=== PATIENT | male | born 1960 ===

== ENCOUNTER 2022-08-16 13:29 | Inpatient (IN) | payer SELFPAY ==
[~2022-08-16] VITALS: Ht 185.4 cm; Wt 78.1 kg
[2022-08-16] VITALS (320 sets, daily range): BP systolic 66–129; BP diastolic 48–102; PULSE 158; TEMP 96.6; O2SAT 71–100
[2022-08-16 13:40] LABS: HEMATOCRIT 51.1 % (42.0-52.0); HEMOGLOBIN 16.4 g/dl (13.5-18.0); MEAN CELL VOLUME 89 fl (80.0-100.0); MEAN CORPUSCULAR HEMOGLOBIN 29 pg (27-31); MEAN CORPUSCULAR HGB CONC 32 g/dl (33.0-37.0); MEAN PLATELET VOLUME 10.6 fl (7.4-10.4); PLATELET COUNT 218 K/mm3 (130-400); RED BLOOD COUNT 5.76 M/mm3 (4.20-5.60); REDCELL DISTRIBUTION WIDTH-CV 15.1 % (11.5-14.5)
[2022-08-16 14:09] LABS: BAND 12 % (0-10); LYMPHOCYTE 2 % (20.0-51.0); NEUTROPHILS 85 % (42.0-75.2)
[2022-08-16 14:10] LABS: ANISOCYTOSIS 1+; BURR CELLS 1+; PLATELET ESTIMATE NORMAL (NORMAL)
[2022-08-16 15:06] LABS: ALBUMIN 2.9 gm/dL (3.4-4.8); BILIRUBIN,TOTAL 1.9 mg/dL (0.2-1.2); C-REACTIVE PROTEIN 3.06 mg/dL (0.00-0.50); CALCIUM 7.7 mg/dL (8.4-10.2); CREATININE, serum 1.58 mg/dL (0.72-1.25); MAGNESIUM 2.1 mg/dL (1.6-2.6); POTASSIUM 4.9 mmol/L (3.5-4.5)
--- NOTE | 2022-08-16 17:50 | NUR ---
PT ADMITTED FROM ED AT THIS TIME. VENTILATED AND SEDATED. BILATERAL SOFT WRIST RESTRAINTS IN PLACE. MINIMAL PAIN RESPONSE FROM PT. HEART RATE AND RHYTHM UNSTABLE; AFIB WITH A RATE IN THE 160. BP 90'S/80'S. DR. ORTEGA AT THE BEDSIDE DURING ADMISSION. DECKER CATHETER DRAINING WITH CHANTELL BLOOD PRESENT. PETECHIAE PRESENT THROUGHOUT BODY BUT VERY OBVIOUS TO FOREHEAD. UNABLE TO OBTAIN INFORMATION FROM PT DUE TO BEING INTUBATED AND SEDATED. ED STAFF WAS UNABLE TO OBTAIN INFORMATION FROM PT WELL. DR. LEE ON HIS WAY TO PERFORM BETHANY AND EVALUATE FOR CARDIOVERSION.
--- NOTE | 2022-08-16 18:25 | NUR ---
PT UNABLE TO CONSENT TO PROCEDURE DUE TO BEING INTUBATED AND SEDATED. NO KNOWN FAMILY TO CONTACT FOR CONSENT.
[2022-08-16 18:31] LABS: ARTERIAL BLD GAS TCO2 CT 12.2; ARTERIAL BLOOD GAS BASE EXCESS -14.8 (-2-2); ARTERIAL BLOOD GAS HCO3 11.4 meq/L (22-26); ARTERIAL BLOOD GAS PCO2 28.6 mmHg (35-45); ARTERIAL BLOOD GAS PO2 64.4 mmHg (80-100); ARTERIAL BLOOD GAS pH 7.22 (7.35-7.45)
[2022-08-16 19:30] LABS: PROTHROMBIN TIME 23.2 SECONDS (9.7-12.8)
[2022-08-16 19:45] LABS: CALCIUM 7.4 mg/dL (8.4-10.2); CREATININE, serum 1.54 mg/dL (0.72-1.25)
[2022-08-17] VITALS (936 sets, daily range): BP systolic 79–146; BP diastolic 55–100; PULSE 77–158; TEMP 98.1–99.6; O2SAT 87–100
[2022-08-17 00:53] LABS: ARTERIAL BLD GAS O2 SATURATION 99.1 % (92-100); ARTERIAL BLD GAS TCO2 CT 17.3; ARTERIAL BLOOD GAS BASE EXCESS -8.5 (-2-2); ARTERIAL BLOOD GAS HCO3 16.3 meq/L (22-26); ARTERIAL BLOOD GAS PCO2 32.3 mmHg (35-45); ARTERIAL BLOOD GAS pH 7.32 (7.35-7.45)
[2022-08-17 00:54] LABS: ARTERIAL BLOOD GAS PO2 162.2 mmHg (80-100)
[2022-08-17 01:56] LABS: HEMATOCRIT 43.6 % (42.0-52.0)
[2022-08-17 01:59] LABS: HEMOGLOBIN 14.2 g/dl (13.5-18.0)
--- NOTE | 2022-08-17 02:00 | NUR ---
Patient care, medication administration and nursing documentation occurred during a Daylight Savings Time Change.
--- NOTE | 2022-08-17 04:43 | NUR ---
62 yo male admitted for further care and management of acute respiratory failure and severe sepsis likely secondary to a pulmonary source. ht 185.42 cm wt 105.3 kg SCr 1.54 with estimated CrCl >60 ml/min half life 18.3 hours Plan: Patient received an initial loading dose of vancomycin 2000 mg x1 in the ED (19 mg/kg); will follow with a maintenance regimen of vancomycin 1500 mg q18h to target a goal trough of 15-20 mcg/ml. Will follow patient's renal function, micro data, and vancomycin levels as indicated to assess for any necessary changes to regimen. Thank you for this dosing consult.
[2022-08-17 05:11] LABS: ARTERIAL BLD GAS O2 SATURATION 99.6 % (92-100); ARTERIAL BLD GAS TCO2 CT 16.7; ARTERIAL BLOOD GAS BASE EXCESS -9.5 (-2-2); ARTERIAL BLOOD GAS HCO3 15.7 meq/L (22-26); ARTERIAL BLOOD GAS PCO2 32.6 mmHg (35-45)
[2022-08-17 05:12] LABS: ARTERIAL BLOOD GAS PO2 257.1 mmHg (80-100)
[2022-08-17 05:36] LABS: BASO % 0.2 % (0.0-2.0); GRAN # 13.6 K/mm3 (1.4-6.5); GRAN % 89.2 % (42.2-75.2); HEMATOCRIT 43.4 % (42.0-52.0); LYMPH # 0.8 K/mm3 (1.2-3.4); LYMPH % 5.1 % (20.0-51.0); MEAN CELL VOLUME 88 fl (80.0-100.0); MEAN CORPUSCULAR HEMOGLOBIN 28 pg (27-31); MEAN CORPUSCULAR HGB CONC 32 g/dl (33.0-37.0); MEAN PLATELET VOLUME 10.3 fl (7.4-10.4); MONO # 0.8 K/mm3 (0.1-0.6); PLATELET COUNT 133 K/mm3 (130-400); RED BLOOD COUNT 4.96 M/mm3 (4.20-5.60)
[2022-08-17 05:39] LABS: INR 1.8 (0.8-3.0); PROTHROMBIN TIME 20.4 SECONDS (9.7-12.8)
[2022-08-17 05:57] LABS: ALBUMIN 2.5 gm/dL (3.4-4.8); BILIRUBIN,TOTAL 2.1 mg/dL (0.2-1.2); CALCIUM 7.4 mg/dL (8.4-10.2); CREATININE, serum 1.52 mg/dL (0.72-1.25); POTASSIUM 4.9 mmol/L (3.5-4.5); TOTAL PROTEIN 4.9 gm/dL (6.2-8.1)
--- NOTE | 2022-08-17 07:47 | NUR ---
RECEIVED REPORT FROM [facility] RNJULIET. DRIPS, VENTILATOR SETTINGS, ETT & OG PLACEMENT, DECKER CATH, CBI ALL VERIFIED BEDSIDE. PATIENT INTUBATED AND SEDATED AT THIS TIME. WILL CONTINUE TO MONITOR.
--- NOTE | 2022-08-17 10:15 | NUR ---
RECEIVED REPORT FROM CHRISTI DOTY, JULIET. BRIANNE PIERSON, ZAFARI ALL VERIFIED BEDSIDE. PATIENT HAS CBI GOING. URINE IS NOW PINK WITH MINIMAL CLOTS TODAY. WILL CONTINUE TO MONITOR.
--- NOTE | 2022-08-17 10:52 | NUR ---
PT TAKEN TO CT FOR CT ABD/PELVIS AT THIS TIME.
--- NOTE | 2022-08-17 11:15 | NUR ---
Manager Hiv rounds: Manager Hiv visit attempted. Two RN were providing Patient care.
--- NOTE | 2022-08-17 12:30 | NUR ---
BEDSIDE CYSTO PERFORMED BY DR. BLACKMON AT THIS TIME. DECKER PLACEMENT WITH CYSTO WAS UNSUCCESSUL. DR. BLACKMON SPOKE WITH PT'S FAMILY; WILL PROCEED WITH PLACEMENT OF SUPRAPUBIC CATHETER AT THE BEDSIDE.
--- NOTE | 2022-08-17 13:00 | NUR ---
SUPRAPUBIC CATHETER PLACED AT THE BEDSIDE BY DR. BLACKMON AT THIS TIME.
[2022-08-17 14:32] LABS: INR 1.9 (0.8-3.0); PROTHROMBIN TIME 21.5 SECONDS (9.7-12.8)
[2022-08-17 17:00] LABS: ARTERIAL BLD GAS O2 SATURATION 98.8 % (92-100); ARTERIAL BLOOD GAS BASE EXCESS -7.6 (-2-2); ARTERIAL BLOOD GAS HCO3 17.4 meq/L (22-26); ARTERIAL BLOOD GAS PCO2 34.3 mmHg (35-45); ARTERIAL BLOOD GAS PO2 126.5 mmHg (80-100); ARTERIAL BLOOD GAS pH 7.32 (7.35-7.45)
--- NOTE | 2022-08-17 18:09 | NUR ---
DECKER CATHETER REMOVED AT [address] BLACKMON REQUEST.
--- NOTE | 2022-08-17 18:15 | NUR ---
PATIENT OPENED EYES AT THIS TIME. PATIENT ABLE TO NOD HEAD YES AND NO TO ANSWER QUESTIONS SUCH "ARE YOU IN PAIN" AND "DO YOU KNOW DEJAN (BROTHER)". PATIENT WAS ABLE TO FOLLOW COMMANDS TO WIGGLE TOES AND SQUEEZE HANDS. HOWEVER, PATIENT WAS UNABLE TO MOVE TOES OR SQUEEZE HAND ON LEFT SIDE. DR. WADSWORTH UPDATED BY PHONE CALL AT [phone] - ORDERS FOR NEURO CONSULT HAVE BEEN ACKNOWLEDGED. TIGRE SKINNER DNP, NOTIFIED BY PHONE CALL AT [phone]. FENTANYL AND PROPOFOL ARE CONTINUED AT THIS TIME FOR LIGHT SEDATION.
[2022-08-17 18:33] LABS: COLLECTION METHOD CATHETER
[2022-08-17 18:40] LABS: URINE APPEARANCE Cloudy (CLEAR/HAZY); URINE COLOR Amber (YELLOW)
[2022-08-17 18:41] LABS: URINE GLUCOSE Negative (NEGATIVE); URINE KETONE Negative (NEGATIVE); URINE PROTEIN(semi-quant) 2+ (NEGATIVE)
[2022-08-17 18:42] LABS: URINE BLOOD 3+ (NEGATIVE); URINE NITRATE Negative (NEGATIVE); URINE UROBILINOGEN 0.2 E.U/dL (0.2-1.0)
[2022-08-17 18:57] LABS: MUCOUS Present (NOT PRESENT); SQUAMOUS EPITHELIAL None Seen /hpf (0-10); URINE BACTERIA Rare /hpf (NONE SEEN); URINE RBC >50 /hpf (0-2)
[2022-08-17 19:21] LABS: TRICYCLIC ANTIDEPRESS URINE NEGATIVE
--- NOTE | 2022-08-17 20:09 | NUR ---
CALL TO DR. LEE AT 1830 TO REPORT TACHYCARDIA OF 140-170s. JESUS ORDERED 0.5MG OF DIGOXIN TO BE GIVEN A ONE TIME ORDER. DIGOXIN GIVEN AT 1840. HEART RATE TO BE RE-EVALUATED AFTER AN HOUR 0.
[2022-08-17 20:15] LABS: CALCIUM 7.6 mg/dL (8.4-10.2); CREATININE, serum 1.69 mg/dL (0.72-1.25); PHOSPHOROUS 2.7 mg/dL (2.3-4.7); POTASSIUM 4.6 mmol/L (3.5-4.5)
[2022-08-17 20:22] LABS: TROPONIN-I 0.033 ng/mL (0.00-0.033)
[2022-08-17 20:36] LABS: HEMATOCRIT 39.6 % (42.0-52.0); HEMOGLOBIN 13.1 g/dl (13.5-18.0); MEAN CELL VOLUME 87 fl (80.0-100.0); MEAN CORPUSCULAR HEMOGLOBIN 29 pg (27-31); MEAN CORPUSCULAR HGB CONC 33 g/dl (33.0-37.0); MEAN PLATELET VOLUME 9.6 fl (7.4-10.4); PLATELET COUNT 90 K/mm3 (130-400); RED BLOOD COUNT 4.58 M/mm3 (4.20-5.60)
[2022-08-17 20:40] LABS: ANISOCYTOSIS 1+; BAND 3 % (0-10); EOSINOPHIL 1 % (0-4); LYMPHOCYTE 5 % (20.0-51.0); NEUTROPHILS 87 % (42.0-75.2); PLATELET ESTIMATE DECREASED (NORMAL)
--- NOTE | 2022-08-17 21:11 | NUR ---
SUCTIONING NOT DONE DUE TO PT'S DELICATE CARDIAC STATUS
[2022-08-18] VITALS (1231 sets, daily range): BP systolic 104–141; BP diastolic 58–113; PULSE 63–100; TEMP 97.4–98.6; O2SAT 89–100
--- NOTE | 2022-08-18 01:30 | NUR ---
Discussed patient status with Dr. Jones. Reported that patient has been getting tachycardic into the 170's. Appears to possibly be runs of SVT. Heart rate fluctuates in rate very freqently as well. BP mostly stable on low dose Levophed with these heart rate fluctuations. Received order to keep Amiodoarone at 1 mg/min if heart rate is sustained greater than 130's. If heart rate drops to below 130's consistently then can reduce rate to 0.5 mg/min.
[2022-08-18 05:24] LABS: ARTERIAL BLD GAS O2 SATURATION 99.2 % (92-100); ARTERIAL BLD GAS TCO2 CT 19.5; ARTERIAL BLOOD GAS BASE EXCESS -4.9 (-2-2); ARTERIAL BLOOD GAS HCO3 18.6 meq/L (22-26); ARTERIAL BLOOD GAS PCO2 29.9 mmHg (35-45); ARTERIAL BLOOD GAS pH 7.41 (7.35-7.45)
[2022-08-18 05:25] LABS: ARTERIAL BLOOD GAS PO2 142.8 mmHg (80-100)
[2022-08-18 05:50] LABS: BASO % 0.2 % (0.0-2.0); EOS # 0.1 K/mm3 (0.0-0.7); EOS % 0.4 % (0.0-4.0); GRAN # 10.9 K/mm3 (1.4-6.5); GRAN % 88.1 % (42.2-75.2); HEMATOCRIT 37.5 % (42.0-52.0); HEMOGLOBIN 11.8 g/dl (13.5-18.0); LYMPH # 0.7 K/mm3 (1.2-3.4); LYMPH % 5.3 % (20.0-51.0); MEAN CELL VOLUME 90 fl (80.0-100.0); MEAN CORPUSCULAR HEMOGLOBIN 28 pg (27-31); MEAN CORPUSCULAR HGB CONC 32 g/dl (33.0-37.0); MONO # 0.7 K/mm3 (0.1-0.6); MONO % 5.7 % (1.7-9.3); PLATELET COUNT 80 K/mm3 (130-400); RED BLOOD COUNT 4.19 M/mm3 (4.20-5.60)
[2022-08-18 05:55] LABS: INR 1.8 (0.8-3.0); PROTHROMBIN TIME 21.2 SECONDS (9.7-12.8)
[2022-08-18 06:06] LABS: BILIRUBIN,TOTAL 1.6 mg/dL (0.2-1.2); CALCIUM 7.6 mg/dL (8.4-10.2); CREATININE, serum 1.46 mg/dL (0.72-1.25); POTASSIUM 4.1 mmol/L (3.5-4.5); TOTAL PROTEIN 4.2 gm/dL (6.2-8.1)
--- NOTE | 2022-08-18 09:51 | NUR ---
Patient currently intubated and sedated. Phone call made to the patients brother Rodriguez ([phone]) to complete intake. Per Rodriguez he has had minimal contact with his brother since their mother 7 years ago. He last knew of his brother living in [place]. Per Rodriguez the patient has no children and was not able to provide additional historical information on the patients baseline. Together they have a sister named Nicole, but Rodriguez is estanged from her as well.
[2022-08-18 10:10] LABS: PARTIAL THROMBOPLASTIN TIME 32.1 SECONDS (26.0-37.0)
--- NOTE | 2022-08-18 10:14 | NUR ---
Dr. Solorio called ICU for update on pt. This nurse reported urine was looking good with good output scant sediment noted but no blood in urine at this time. Dr. Solorio stated he was in flora but will round to prt tomorrow.
[2022-08-18 10:43] LABS: HEMATOCRIT 38.1 % (42.0-52.0); HEMOGLOBIN 12.2 g/dl (13.5-18.0); MEAN CELL VOLUME 89 fl (80.0-100.0); MEAN CORPUSCULAR HEMOGLOBIN 28 pg (27-31); MEAN CORPUSCULAR HGB CONC 32 g/dl (33.0-37.0); PLATELET COUNT 79 K/mm3 (130-400); RED BLOOD COUNT 4.29 M/mm3 (4.20-5.60); REDCELL DISTRIBUTION WIDTH-CV 15.1 % (11.5-14.5)
[2022-08-18 11:42] LABS: BAND 1 % (0-10); EOSINOPHIL 1 % (0-4); LYMPHOCYTE 4 % (20.0-51.0); NEUTROPHILS 88 % (42.0-75.2); PLATELET ESTIMATE DECREASED (NORMAL)
[2022-08-18 11:44] LABS: ANISOCYTOSIS 1+
[2022-08-18 13:08] LABS: HEMOGLOBIN 11.2 g/dl (13.5-18.0)
[2022-08-18 13:09] LABS: HEMATOCRIT 34.4 % (42.0-52.0)
[2022-08-18 16:22] LABS: HEMOGLOBIN 11.5 g/dl (13.5-18.0)
[2022-08-19] VITALS (1390 sets, daily range): BP systolic 89–126; BP diastolic 50–78; PULSE 70–151; TEMP 97.6–99.1; O2SAT 87–100
--- NOTE | 2022-08-19 01:26 | NUR ---
PT APPEARS TO BE COMFORTABLE. PT WILL REACH FOR NURSES HAND, AND HOLDS HAND TIGHT WITH RIGHT HAND, BUT DOES NOT MOVE OR SQUEEZE WITH LEFT HAND. PT IS WEANING FROM LEVOPHED, AND DOING WELL WITH PRESSURES MAINTAING 100S SBP AND 50S DBP. PT IS ABLE TO AROUSE EASILY.PT HAD A FULL BED LINEN CHANGE, ALL SUCTION CANISTERS CHANGED.
--- NOTE | 2022-08-19 03:12 | NUR ---
SUCTIONED SMALL AMOUNT OF THICK BLOOD TINGED SECRETIONS
[2022-08-19 04:16] LABS: HEMOGLOBIN 10.3 g/dl (13.5-18.0); MEAN CELL VOLUME 90 fl (80.0-100.0); MEAN CORPUSCULAR HEMOGLOBIN 29 pg (27-31); MEAN CORPUSCULAR HGB CONC 32 g/dl (33.0-37.0); MEAN PLATELET VOLUME 10.3 fl (7.4-10.4); PLATELET COUNT 69 K/mm3 (130-400); RED BLOOD COUNT 3.62 M/mm3 (4.20-5.60)
[2022-08-19 04:24] LABS: INR 1.5 (0.8-3.0); PROTHROMBIN TIME 17.2 SECONDS (9.7-12.8)
[2022-08-19 04:34] LABS: ALBUMIN 1.7 gm/dL (3.4-4.8); BILIRUBIN,TOTAL 1.2 mg/dL (0.2-1.2); CALCIUM 7.3 mg/dL (8.4-10.2); CREATININE, serum 1.01 mg/dL (0.72-1.25); TOTAL PROTEIN 3.9 gm/dL (6.2-8.1)
--- NOTE | 2022-08-19 04:57 | NUR ---
HEPARIN AT GOAL
--- NOTE | 2022-08-19 04:57 | NUR ---
0900 TO INCREASE FEED BY 15 ML
[2022-08-19 05:18] LABS: ARTERIAL BLD GAS O2 SATURATION 98.8 % (92-100); ARTERIAL BLD GAS TCO2 CT 22.8; ARTERIAL BLOOD GAS BASE EXCESS -1.3 (-2-2); ARTERIAL BLOOD GAS HCO3 21.8 meq/L (22-26); ARTERIAL BLOOD GAS PCO2 31.7 mmHg (35-45); ARTERIAL BLOOD GAS pH 7.46 (7.35-7.45)
[2022-08-19 05:33] LABS: ANISOCYTOSIS 1+; BURR CELLS 1+; LYMPHOCYTE 11 % (20.0-51.0); NEUTROPHILS 84 % (42.0-75.2); PLATELET ESTIMATE DECREASED (NORMAL)
[2022-08-19 05:38] LABS: HEMATOCRIT 32.4 % (42.0-52.0)
--- NOTE | 2022-08-19 12:58 | NUR ---
BEDSIDE REPORT RECEIVED FROM SOREN OG. PT ON VENTILATOR, SIZE 8.0 ETT MEASURES 24CM AT TEETH, TV 500, PEEP 8, FIO2 30%, RATE 18. OG TUBE IN PLACE MEASURES 63CM AT LIP, TUBE FEEDINGS INFUSING AT 25ML/HR, PT TOLERATING WELL. DRIPS INFUSING ORDERED TO R UPPER ARM PICC AND PERIPHERAL 20G IN L AC, SEE MAR/FLOWSHEET. ART LINE TO L RADIAL ARTERY WNL, DRESSING INTACT. SUPRAPUBIC CATHETER IN PLACE, DARK YELLOW URINE NOTED IN DRAINAGE BAG. PT REPOSITIONED Q 2HR TO PREVENT SKIN BREAKDOWN.
[2022-08-20] VITALS (1234 sets, daily range): BP systolic 95–133; BP diastolic 49–75; PULSE 71–120; TEMP 98.7–100; O2SAT 84–100
[2022-08-20 05:39] LABS: HEMOGLOBIN 10.3 g/dl (13.5-18.0); MEAN CELL VOLUME 88 fl (80.0-100.0); MEAN CORPUSCULAR HEMOGLOBIN 28 pg (27-31); MEAN CORPUSCULAR HGB CONC 32 g/dl (33.0-37.0); MEAN PLATELET VOLUME 9.7 fl (7.4-10.4); PLATELET COUNT 70 K/mm3 (130-400); RED BLOOD COUNT 3.66 M/mm3 (4.20-5.60); REDCELL DISTRIBUTION WIDTH-CV 15.2 % (11.5-14.5)
[2022-08-20 05:42] LABS: HEMATOCRIT 32.2 % (42.0-52.0)
[2022-08-20 05:52] LABS: ALBUMIN 1.8 gm/dL (3.4-4.8); BILIRUBIN,TOTAL 1.3 mg/dL (0.2-1.2); CALCIUM 7.5 mg/dL (8.4-10.2); CREATININE, serum 0.91 mg/dL (0.72-1.25); POTASSIUM 3.8 mmol/L (3.5-4.5)
[2022-08-20 07:54] LABS: ARTERIAL BLD GAS O2 SATURATION 98.6 % (92-100); ARTERIAL BLOOD GAS BASE EXCESS 1.2 (-2-2); ARTERIAL BLOOD GAS HCO3 24.3 meq/L (22-26); ARTERIAL BLOOD GAS PCO2 33.4 mmHg (35-45); ARTERIAL BLOOD GAS PO2 107.3 mmHg (80-100)
[2022-08-20 13:12] LABS: ARTERIAL BLD GAS O2 SATURATION 93.6 % (92-100); ARTERIAL BLD GAS TCO2 CT 21.3; ARTERIAL BLOOD GAS BASE EXCESS -2.9 (-2-2); ARTERIAL BLOOD GAS HCO3 20.3 meq/L (22-26); ARTERIAL BLOOD GAS PCO2 30.7 mmHg (35-45); ARTERIAL BLOOD GAS PO2 67.2 mmHg (80-100); ARTERIAL BLOOD GAS pH 7.44 (7.35-7.45)
--- NOTE | 2022-08-20 14:02 | NUR ---
1030 IN WITH PT AT BEDSIDE AND STARTED CPAP TRIAL. 1040 SEDATION STOPPED. PROP. AND FENT. DRIPS PUT ON STAND BY AT THIS TIME. 1040 TUBE FEEDING ON HOLD. [address] MOSQUEDA STATES PT CAN BE EXTUBATED. 1210 PT EXUBATED BY RT. RN AND SHIFT LEADER AT BEDSIDE. PT PLACE ON 2L NC. TOLERATED WELL. PT ABLE TO MOVE RIGHT UPPER EXTREMITY AND BILATERAL LOWER EXTREMITIES BUT NO MOVEMENT TO LEFT UPPER EXTREMITY. FACIAL DROOPING NOTED TO LEFT SIDE. PT ABLE TO SQUEEZE RIGHT HAND AND POINT AT FACE NO OTHER INTEREACTIONS AT THIS TIME. 1216 LEVOPHED STOPPED. PT TOLERATED WELL. BP STABLE. TEE PT BROTHER/DPOA CALLED FOR UPDATE. TEE STATED HE WOULD BE IN TOMORROW TO SEE PT.
--- NOTE | 2022-08-20 19:43 | NUR ---
RECEIVED REPORT FROM DAY SHIFT NURSE. PT IS RESTING IN BED WITH CALL LIGHT WITHIN REACH. VITAL SIGNS ARE STABLE AT THIS TIME.
--- NOTE | 2022-08-20 23:57 | NUR ---
PT'S URINE IS DARK TEA COLOR WITH REDISH TINT.
[2022-08-21] VITALS (1141 sets, daily range): BP systolic 92–141; BP diastolic 64–78; PULSE 84–116; TEMP 98.2–99.4; O2SAT 85–100
[2022-08-21 05:34] LABS: BASO % 0.6 % (0.0-2.0); EOS # 0.1 K/mm3 (0.0-0.7); EOS % 1.6 % (0.0-4.0); GRAN # 3.8 K/mm3 (1.4-6.5); GRAN % 75.4 % (42.2-75.2); HEMOGLOBIN 10.3 g/dl (13.5-18.0); LYMPH # 0.6 K/mm3 (1.2-3.4); LYMPH % 12.5 % (20.0-51.0); MEAN CELL VOLUME 86 fl (80.0-100.0); MEAN CORPUSCULAR HEMOGLOBIN 28 pg (27-31); MEAN CORPUSCULAR HGB CONC 33 g/dl (33.0-37.0); MEAN PLATELET VOLUME 9.5 fl (7.4-10.4); MONO # 0.5 K/mm3 (0.1-0.6); MONO % 9.5 % (1.7-9.3); PLATELET COUNT 57 K/mm3 (130-400); RED BLOOD COUNT 3.69 M/mm3 (4.20-5.60); REDCELL DISTRIBUTION WIDTH-CV 14.8 % (11.5-14.5)
[2022-08-21 05:43] LABS: HEMATOCRIT 31.6 % (42.0-52.0)
[2022-08-21 05:54] LABS: BILIRUBIN,TOTAL 2.2 mg/dL (0.2-1.2); CALCIUM 7.7 mg/dL (8.4-10.2); CREATININE, serum 0.81 mg/dL (0.72-1.25); POTASSIUM 3.7 mmol/L (3.5-4.5); TOTAL PROTEIN 4.3 gm/dL (6.2-8.1)
--- NOTE | 2022-08-21 07:37 | NUR ---
PT IS ALERT AND NOT ORIENTED. PT WILL FOLLOW COMMANDS. PT IS ABLE TO SQUEEZE NURSES HAND WITH HIS RIGHT HAND. PT'S LEFT HAND AND ARM IS FLACID. PT IS ABLE TO OPEN EYES WHEN ASKED PT'S LEFT EYE DOES NOT OPEN MUCH AND THE RIGHT EYE. PUPILS WERE EQUAL AND REACTIVE TO LIGHT. PT WILL WIGGLE TOES BILAT AND LIFT HIS RIGHT LEG OFF THE BED ABOUT 2 INCHES AND LIFT HIS LEFT LEG ABOUT 1/2 INCH TO AN INCH OFF THE BED. PT'S PULSES WERE FELT IN RADIAL AND FEET. PT'S URINE IS A DARK BROWNISH TEA COLOR WITH A RED TINT. THE URINE IS GETTING LESS RED THROUGHOUT THE NIGHT. PT'S HEPARIN DID NOT CHANGE WITH THE 0500 HEPXA. PT WAS ON 2L NC AT THE BEGINING OF THE SHIFT AND WAS STATING IN THE HIGH 90'S AND PT WAS STARTING TO TAKE OF THE NC EVEN WHEN NURSE PUT IT BACK ON. AROUND 1999 PT WAS STATING 95%-96% WITHOUT O2 SO THE O2 STAYED OFF AND PT'S SPO2 WAS GOOD THROUGHOUT THE NIGHT. GAVE REPORT TO DAY SHIFT NURSE.
--- NOTE | 2022-08-21 09:11 | NUR ---
RECEIVED REPORT FROM NIGHTSHIFT RN, BRENDAN MCKENNA. PATIENT RESTING IN BED AT THIS TIME. IV DRIPS VERIFIED AT BEDSIDE. CALL LIGHT WITHIN REACH. WILL CONTINUE TO MONITOR.
--- NOTE | 2022-08-21 09:22 | NUR ---
HEAD TO TOE ASSESSMENT COMPLETED. MEDICATION ADMINISTERED PER EMAR. PATIENT NODDED HEAD "YES" WHEN ASKED IF HE WAS IN PAIN. PRN MORPHINE ADMINISTERED PER ORDERS. ORDERS, MEDICATIONS, AND LABWORK REVIEWED AND ACKNOWLEDGED. PATIENT REPOSITIONED IN BED AT THIS TIME. CALL LIGHT WITHIN REACH. WILL CONTINUE TO MONITOR.
--- NOTE | 2022-08-21 16:02 | NUR ---
Project Administrative Assistant spoke with Hospitalist about ordering PT/OT for patient. MARIA TERESA met with patient's brother, Rodriguez to check in. Rodriguez advised his sister, Nicole lives in [place] and she cannot drive. Per Rodriguez, Nicole is not very mobile but is trying to find a ride here to visit. There is another sibling, Hector is Nicole's biological child, however was adopted by patient's parents. According to Rodriguez, Hector is in a mental liang at this time. MARIA TERESA advised Rodriguez that we can start the process for applying for Medicaid. Rodriguez has limited information about patient's finances but did advised his understanding is that patient lived in a low income apartment. MARIA TERESA sent an email to Fannie, Financial Counselor.
--- NOTE | 2022-08-21 18:06 | NUR ---
ARTERIAL LINE REMOVED FROM PATIENT'S LEFT WRIST AT 1220. CATHETER TIP INTACT UPON REMOVAL. MANUAL PRESSURE HELD FOR 12 MINUTES. GUAZE AND TEGADERM DRESSING APPLIED TO THE SITE.
--- NOTE | 2022-08-21 19:39 | NUR ---
RECEIVED REPORT FROM DAY SHIFT NURSE. PT IS LYING IN BED WITH CALL LIGHT WITHIN REACH. REPOSITIONED PT WITH DAY SHIFT NURSE. PT'S VITALS ARE STABLE AT THIS TIME.
[2022-08-22] VITALS (1065 sets, daily range): BP systolic 113–125; BP diastolic 69–93; PULSE 73–101; TEMP 98.1–98.8; O2SAT 73–100
--- NOTE | 2022-08-22 03:01 | NUR ---
PT IS RESTING IN BED COMFORTABLY. NO DISTRESS NOTED. PT HAS A MARIA M ON THE R HAND. PT KEEPS STRETCHING OUT MARIA M AND HAND TO TAKE OF MARIA M. WHEN ASKED IF UNCOMFORTABLE HE SHOOK HEAD YES. BRENDAN DOTY NOTIFIED. NO OTHER CONCERNS AT THIS TIME.
[2022-08-22 05:15] LABS: MEAN CELL VOLUME 86 fl (80.0-100.0); MEAN CORPUSCULAR HEMOGLOBIN 29 pg (27-31); MEAN CORPUSCULAR HGB CONC 33 g/dl (33.0-37.0); MEAN PLATELET VOLUME 10.4 fl (7.4-10.4); PLATELET COUNT 70 K/mm3 (130-400); RED BLOOD COUNT 3.83 M/mm3 (4.20-5.60)
--- NOTE | 2022-08-22 06:50 | NUR ---
PT IS ALERT AND RESTLESS AT TIME. PT CAN ANSWER YES AND NO QUESTIONS AND IS ABLE TO ANSWER THE ORIENTED QUESTIONS IN A YES AND NO FORMAT AND ABLE TO ANSWER CORRECTLY. PT IS ABLE TO FOLLOW COMMANDS AND SQUEEZE NURSES HAND WITH HIS RIGHT HAND. PT IS ABLE TO MOVE THE LEFT ARM A LITTLE BIT TONIGHT. PT IS ABLE TO WIGGLE TOES AND MOVE FEET BILAT. PT IS ABLE TO MOVE THE RIGHT LEG MORE THAN THE LEFT. PT'S URINE IS ORANGE COLOR WITH A RED TINT AND HAS ORANGE SEDIMENT. PT HAS A SCRATCH ON LEFT ELBOW AND IS REDDENED DO TO HIM MOVING IT A LOT AGAINST THE BED. NURSE PUT MEPELEX IN PLACE. VITAL SIGNS HAVE BEEN STABLE THROUGHOUT THE NIGHT. PT'S DOBHUFF IS AT 89 AT LEFT NARE WITH A BRIDIAL HOLDING IT IN PLACE. PT HAS NOT TRIED TO REACH OR PULL AT IT IN THIS SHIFT. WILL GIVE REPORT TO DAY SHIFT NURSE.
[2022-08-22 08:07] LABS: ALBUMIN 2.1 gm/dL (3.4-4.8); CALCIUM 7.8 mg/dL (8.4-10.2); CREATININE, serum 0.81 mg/dL (0.72-1.25); POTASSIUM 3.5 mmol/L (3.5-4.5); TOTAL PROTEIN 4.5 gm/dL (6.2-8.1)
--- NOTE | 2022-08-22 16:06 | NUR ---
Exterior Work Helper attempted to call Dionne Shah at [facility] and left a message. Per Attenuator, further goals of care discussion to take place early next week.
[2022-08-23] VITALS (1179 sets, daily range): BP systolic 96–133; BP diastolic 66–90; PULSE 88–105; TEMP 98–98.8; O2SAT 74–100
[2022-08-23 05:07] LABS: BASO % 0.6 % (0.0-2.0); EOS # 0.2 K/mm3 (0.0-0.7); EOS % 3.3 % (0.0-4.0); GRAN # 4.6 K/mm3 (1.4-6.5); HEMATOCRIT 34.4 % (42.0-52.0); HEMOGLOBIN 11.4 g/dl (13.5-18.0); LYMPH # 1.1 K/mm3 (1.2-3.4); LYMPH % 16.4 % (20.0-51.0); MEAN CELL VOLUME 86 fl (80.0-100.0); MEAN CORPUSCULAR HEMOGLOBIN 29 pg (27-31); MEAN CORPUSCULAR HGB CONC 33 g/dl (33.0-37.0); MEAN PLATELET VOLUME 9.4 fl (7.4-10.4); MONO # 0.7 K/mm3 (0.1-0.6); MONO % 9.9 % (1.7-9.3); PLATELET COUNT 101 K/mm3 (130-400); RED BLOOD COUNT 3.99 M/mm3 (4.20-5.60); REDCELL DISTRIBUTION WIDTH-CV 15.3 % (11.5-14.5)
[2022-08-23 05:21] LABS: BILIRUBIN,TOTAL 1.4 mg/dL (0.2-1.2); CALCIUM 7.7 mg/dL (8.4-10.2); CREATININE, serum 0.85 mg/dL (0.72-1.25); PHOSPHOROUS 1.4 mg/dL (2.3-4.7); POTASSIUM 3.7 mmol/L (3.5-4.5); TOTAL PROTEIN 4.8 gm/dL (6.2-8.1)
--- NOTE | 2022-08-23 07:24 | NUR ---
Patient had an uneventful night. By the end of shift patient was able to open both eyes simutaneously, pupils are equal and reactive to light. Patient attempts to communicate to this RN by answering yes and no questions with attmepts to speak. Patient was able to answer time, place, and situation correctly. Patient is getting progressively stronger on their left side. Per day shift RN on 08/22/2022 patient was able to move their left hand minimally, by the end of chef de cuisine tonight patient was able to touch their face with their left hand. Patients left lower extremity is edematous +2 while the right lower extremity is +1. Patients medications were given through the entire shift per EMar. Patient is resting comfortably in bed.
--- NOTE | 2022-08-23 09:18 | NUR ---
BEDSIDE REPORT RECEIVED FROM SOREN CORREIA. PT RESTING IN BED, VSS. NG TUBE IN PLACE TO L NARE MEASURING 89CM, TUBE FEEDINGS INFUSING ORDERED. HEPARIN INFUSING AT 19ML/HR TO R UPPER ARM PICC. SUPRAPUBIC CATHETER IN PLACE, DRESSING CDI, DARK YELLOW URINE NOTED IN DRAINAGE BAG. CALL LIGHT IN REACH, BED ALARM ON FOR PT SAFETY.
--- NOTE | 2022-08-23 11:38 | NUR ---
Sql Server Dba Developer rounds: Patient was sleeping. Sql Server Dba Developer prayed for Patient silently outside of room.
--- NOTE | 2022-08-23 20:00 | NUR ---
SHIFT REPORT RECEIVED. PT AWAKE AND ALERT. ABLE TO ANSWER "YES, NO" QUESTIONS BY NODING. IS ORIENTED THAT HE IS IN [place] AND IN THE HOSPITAL. PT WITH DOFHOB NG TUBE WITH TUBE FEEDS RUNNING. PT WITH SUPAPUBIC CATHETER WITH DARK YELLOW CLEAR URINE RETURN. PT ON RA. LT LUNG SOUNDS DIMINISHED, RT LUNG SOUNDS CLEAR WITH BASE DIMINISHED. PT LT LEG ARNAUD, +3 PITTING AND HEAT TO TOUCH PEDAL PULSES FAINT BUT PALPABLE. RT LEG WITH +2 EDEMA, ARNAUD WITH PEDAL PULSES PALPABLE. RT GROIN/HIP AREA WITH BRUISING FROM PREVIOUS CENTRAL LINE, AREA SOFT AND PULSE PALPABLE, RT ELBOW WITH ABRAISION COVERED WITH MEPILEX, COCCYX RED AND BLANCHABLE WITH AREA OF GLUETAL FOLD WITH DARK SKIN DISCOLORATION. PT ABLE TO USE CALL LIGHT. BED ALARM ON AND CALL LIGHT WITHIN PT'S GRASP.
[2022-08-24] VITALS (1065 sets, daily range): BP systolic 97–115; BP diastolic 67–92; PULSE 93–108; TEMP 98.1–98.7; O2SAT 68–100
[2022-08-24 05:48] LABS: ALBUMIN 2.1 gm/dL (3.4-4.8); BILIRUBIN,TOTAL 1.1 mg/dL (0.2-1.2); C-REACTIVE PROTEIN 2.14 mg/dL (0.00-0.50); CALCIUM 7.8 mg/dL (8.4-10.2); CREATININE, serum 0.94 mg/dL (0.72-1.25); MAGNESIUM 1.9 mg/dL (1.6-2.6); PHOSPHOROUS 2.3 mg/dL (2.3-4.7); POTASSIUM 3.7 mmol/L (3.5-4.5); TOTAL PROTEIN 4.9 gm/dL (6.2-8.1)
[2022-08-24 05:53] LABS: BASO # 0.1 K/mm3 (0.0-0.2); BASO % 0.7 % (0.0-2.0); EOS # 0.2 K/mm3 (0.0-0.7); EOS % 3.1 % (0.0-4.0); GRAN # 4.8 K/mm3 (1.4-6.5); GRAN % 71.3 % (42.2-75.2); HEMOGLOBIN 11.4 g/dl (13.5-18.0); LYMPH # 1.1 K/mm3 (1.2-3.4); LYMPH % 15.9 % (20.0-51.0); MEAN CELL VOLUME 87 fl (80.0-100.0); MEAN CORPUSCULAR HEMOGLOBIN 29 pg (27-31); MEAN CORPUSCULAR HGB CONC 33 g/dl (33.0-37.0); MEAN PLATELET VOLUME 9.7 fl (7.4-10.4); MONO # 0.5 K/mm3 (0.1-0.6); PLATELET COUNT 132 K/mm3 (130-400); RED BLOOD COUNT 3.99 M/mm3 (4.20-5.60); REDCELL DISTRIBUTION WIDTH-CV 15.9 % (11.5-14.5)
[2022-08-24 05:55] LABS: HEMATOCRIT 34.5 % (42.0-52.0)
--- NOTE | 2022-08-24 18:19 | NUR ---
PT HAS BEEN MORE ALERT TODAY AND IS ABLE TO ANSWER SIMPLE QUESTIONS AND COMMUNICATE W/ SINGLE WORDS AND HAND GESTURES. SPEECH IS SLURRED. L EXTREMITIES ARE WEAK BUT SOME SLIGHT MOVEMENT NOTED IN L HAND. L SIDE FACIAL DROOP NOTED. PT HAS BEEN INCONTINENT OF 2 LARGE LIQUID STOOLS. TUBE FEEDINGS INFUSING ORDERED, ABDOMEN IS SOFT AND GOOD BOWEL SOUNDS HEARD IN ALL QUADRANTS. PT GIVEN PRN ATIVAN PER PT REQUEST FOR AGITATION/RESTLESSNESS.
--- NOTE | 2022-08-24 20:00 | NUR ---
SHIFT REPORT RECEIVED. FULL BED BATH AND LINEN CHANGE PREFORMED DURING BEDSIDE REPORT DUE TO BM. BM LIQUID, LARGE, MCFADDEN/DROWN. PT HAD MULTIPLE BM'S THIS DAY SO RECTAL TUBE PLACED TO PERSERVE SKIN INTERGITY AND PREVENT SKIN BREAKDOWN. ON ASSESSMENT PT ABD NOTED TO BE DISTENDED, SOFT WITH AUDIBLE BOWEL SOUNDS AND TYMPANIC ON PERCUSSION WITH PT C/O ABD DISCOMFORT WHICH IS CHANGED FROM PREVIOUS SHIFT ASSESSMENT OF ABD BEING FLAT, SOFT WITH NO DISCOMFORT. TUBE FEEDINGS PAUSED AT THIS TIME. HOSPITALIST NOTIFIED OF CHANGE IN ABD AND CT ABD WAS ORDERED. THIS RN TRANSPORTED PT ON MONITOR TO CT AT 1950 AND RETURNED TO UNIT AT 2009. UPON ARRIVAL BACK TO UNIT PT BECAME TACHYPNIC AND VISUALBLY ANXIOUS WITH C/O OF SOB AND CHEST PAIN, PT SP02 99% ON ROOM AIR WITH CLEAR LUNG SOUNDS WITH DIMINISHED BASES BL. THERAPUTIC BREATHING EXERCISES PREFORMED WITH PT AND HOSPITALIST NOTIFIED OF PT CONDITION. HOSPITALIST ADVISED TO ADMINISTER ORDERED PRN ATIVAN. ATIVAN ADMINISTERED PER EMAR. PT ABLE TO SLOW BREATHING TO WNL AND NO LONGER ANXIOUS. BED ALARMS ON AND CALL LIGHT WITH REACH FOR PT. PT ABLE TO USE CALL LIGHT NEEDED.
[2022-08-25] VITALS (525 sets, daily range): BP systolic 102–125; BP diastolic 67–82; PULSE 47–100; TEMP 97.9–99; O2SAT 91–100
[2022-08-25 06:21] LABS: BASO # 0.1 K/mm3 (0.0-0.2); BASO % 0.8 % (0.0-2.0); EOS # 0.2 K/mm3 (0.0-0.7); EOS % 2.4 % (0.0-4.0); GRAN # 5.3 K/mm3 (1.4-6.5); GRAN % 70.5 % (42.2-75.2); HEMOGLOBIN 11.5 g/dl (13.5-18.0); LYMPH # 1.3 K/mm3 (1.2-3.4); LYMPH % 17.6 % (20.0-51.0); MEAN CELL VOLUME 86 fl (80.0-100.0); MEAN CORPUSCULAR HEMOGLOBIN 29 pg (27-31); MEAN CORPUSCULAR HGB CONC 33 g/dl (33.0-37.0); MEAN PLATELET VOLUME 9.5 fl (7.4-10.4); MONO # 0.6 K/mm3 (0.1-0.6); MONO % 8.2 % (1.7-9.3); PLATELET COUNT 136 K/mm3 (130-400); RED BLOOD COUNT 4.04 M/mm3 (4.20-5.60); REDCELL DISTRIBUTION WIDTH-CV 16.1 % (11.5-14.5)
[2022-08-25 06:31] LABS: HEMATOCRIT 34.7 % (42.0-52.0)
[2022-08-25 06:33] LABS: CALCIUM 8.3 mg/dL (8.4-10.2); CREATININE, serum 0.82 mg/dL (0.72-1.25); POTASSIUM 3.9 mmol/L (3.5-4.5)
--- NOTE | 2022-08-25 10:48 | NUR ---
1045 REPORT TO MERCEDES ON MEDICAL FLOOR. PT TO TRANFER TO ROOM 315 ON MEDICAL.
--- NOTE | 2022-08-25 12:00 | NUR ---
PT ARRIVED FROM ICU TO 315. PT IS ALERT AND ABLE TO ANSWER YES AND NO QUESTIONS. PT HAS HEPARIN DRIP AT 20ML/HR THRU PICC LINE. PT HAS FEEDING TUBE TO L NARE WITH TF RUNNING. BEDALARM ACTIVE. CALL LIGHT GIVEN TO PT AND INSTRUCTED TO CALL WITH ALL NEEDS. 1215 DR ESTRADA BEDSIDE. PTS BROTHER BEDSIDE. UNABLE TO COME BEDSIDE FOR UPDATE. BROTHERS PHONE NUMBER GIVEN TO AND HE WILL CALL AND UPDATE.
--- NOTE | 2022-08-25 14:46 | NUR ---
Palliative Care Consult today with pt, pt's brother stuart Frias, MARIA TERESA [place] and myself. I asked Marcin if he wanted his brother to hear his status and the pt shook his head "Yes". I reviewed the pt's course of admit with the Rodriguez and pt. I then asked the pt if he wanted a Peg tube and he shook his head "No". I explained to the pt that currently he was a Full Code and reviewed the difference between a full code and DNR. I then asked the pt if he wanted to be a Full Code and the pt shook his head "No". I asked the pt if he wanted to be a DNR and he shook his head "Yes". I asked the pt if he understood and he shook his head "Yes". It was reviewed what aggressive care would entail and what palliative or Hospice would entail. Pt is unable to verbalize due to Dysphagia and is also unable to write responses. Requested for Dr. Snider to order a Speech Consult to be able to try and communicate with the pt. Also informed Dr. Snider pt wanting to be a DNR/DNI. Will return tomorrow after Speech has seen the pt to try and understand more from pt concerning GOC. Pt is currently SP and may need a Nexus Dx conchis.
--- NOTE | 2022-08-25 15:00 | NUR ---
This MARIA TERESA and Nicole MCCURDY met with patient, patients brother Rodriguez and savana Belcher at bedside to review goals of care. Nicole MCCURDY asks patient about code status and patient is able to shake his head "no" that he does not want to be a full code. Upon discussion of hospice care vs. aggressive care the patient visibly withdraws. MARIA TERESA offered to have the patient attempt to right his response down on paper, however the patient is unable to complete this task at this time. Encouraged the patient to spend some time talking about his options with his brother while he is here. CALLI, requests that a speech consult be placed at is only seeing the patient for swallow study. MARIA TERESA requested for PT/OT consult to be placed.
[2022-08-26 04:15] VITALS: BP 117/68; PULSE 77; TEMP 98.7
[2022-08-26 06:37] LABS: BASO # 0.1 K/mm3 (0.0-0.2); BASO % 0.7 % (0.0-2.0); EOS # 0.2 K/mm3 (0.0-0.7); GRAN # 6.4 K/mm3 (1.4-6.5); GRAN % 76.9 % (42.2-75.2); HEMOGLOBIN 11.6 g/dl (13.5-18.0); LYMPH # 1.1 K/mm3 (1.2-3.4); LYMPH % 13.6 % (20.0-51.0); MEAN CELL VOLUME 86 fl (80.0-100.0); MEAN CORPUSCULAR HEMOGLOBIN 29 pg (27-31); MEAN CORPUSCULAR HGB CONC 34 g/dl (33.0-37.0); MEAN PLATELET VOLUME 10.2 fl (7.4-10.4); MONO # 0.5 K/mm3 (0.1-0.6); MONO % 6.1 % (1.7-9.3); PLATELET COUNT 150 K/mm3 (130-400); REDCELL DISTRIBUTION WIDTH-CV 16.1 % (11.5-14.5)
[2022-08-26 06:43] LABS: HEMATOCRIT 34.3 % (42.0-52.0)
[2022-08-26 07:00] LABS: ALBUMIN 2.4 gm/dL (3.4-4.8); CALCIUM 8.2 mg/dL (8.4-10.2); CREATININE, serum 0.82 mg/dL (0.72-1.25); MAGNESIUM 1.9 mg/dL (1.6-2.6); PHOSPHOROUS 2.3 mg/dL (2.3-4.7); POTASSIUM 4.2 mmol/L (3.5-4.5)
--- NOTE | 2022-08-26 07:00 | NUR ---
PT RESTING IN BED. PT HAS TF RUNNING. PT HAS HEPARIN RUNNING THROUGH PICC LINE. PT HAS SUPRAPUBIC CATH DRAINING AND RECTAL TUBE. PT HAS CALL LIGHT AND INSTRUCTED TO CALL WITH ALL NEEDS. PT HAS BEDALARM ACTIVE.
[2022-08-26 08:01] VITALS: BP 121/65; PULSE 81; TEMP 98.5
--- NOTE | 2022-08-26 08:48 | NUR ---
(Late Entry 08/25) SW placed IPR referral to [facility]. PT/OT contsult placed. MARIA TERESA contacted Jurgen at [facility] to review case. Due to the patient not having any form of insurance, patient is not able to be placed at [facility].
[2022-08-26 10:59] VITALS: BP 124/69; PULSE 84; TEMP 98.6
[2022-08-26 16:33] VITALS: BP 90/54; PULSE 88; TEMP 98.5
[2022-08-26 19:24] VITALS: BP 126/97; PULSE 84; TEMP 98.6
[2022-08-26 23:03] VITALS: BP 113/77; PULSE 96; TEMP 98.9
[2022-08-27 03:24] VITALS: BP 102/60; PULSE 81; TEMP 98.5
[2022-08-27 04:52] LABS: BASO # 0.1 K/mm3 (0.0-0.2); BASO % 0.8 % (0.0-2.0); EOS # 0.2 K/mm3 (0.0-0.7); GRAN # 6.3 K/mm3 (1.4-6.5); GRAN % 74.3 % (42.2-75.2); HEMOGLOBIN 11.6 g/dl (13.5-18.0); LYMPH # 1.3 K/mm3 (1.2-3.4); LYMPH % 15.5 % (20.0-51.0); MEAN CELL VOLUME 86 fl (80.0-100.0); MEAN CORPUSCULAR HEMOGLOBIN 29 pg (27-31); MEAN CORPUSCULAR HGB CONC 33 g/dl (33.0-37.0); MEAN PLATELET VOLUME 9.8 fl (7.4-10.4); MONO # 0.6 K/mm3 (0.1-0.6); MONO % 6.9 % (1.7-9.3); PLATELET COUNT 168 K/mm3 (130-400); RED BLOOD COUNT 4.04 M/mm3 (4.20-5.60); REDCELL DISTRIBUTION WIDTH-CV 16.2 % (11.5-14.5)
[2022-08-27 05:03] LABS: HEMATOCRIT 34.7 % (42.0-52.0)
[2022-08-27 05:14] LABS: ALBUMIN 2.5 gm/dL (3.4-4.8); CALCIUM 8.3 mg/dL (8.4-10.2); CREATININE, serum 0.81 mg/dL (0.72-1.25); PHOSPHOROUS 2.6 mg/dL (2.3-4.7); POTASSIUM 4.2 mmol/L (3.5-4.5)
--- NOTE | 2022-08-27 07:36 | NUR ---
PT HEPAIN LEVEL CHECKED AT 7507 AND RESULTED AT 0.41; LEVEL IS THERAPEUTIC SO NO CHANGES WERE MADE BY WRAPPER STEMMER HAND NURSE MERCEDES
[2022-08-27 08:07] VITALS: BP 105/71; PULSE 57; TEMP 98.3
--- NOTE | 2022-08-27 08:41 | NUR ---
recent chest xray indicates that tip of catheter has migrated approx 2 cm into the mid-svc. Blood return still obtainable, will continue to monitor tip location and blood return status.
[2022-08-27 11:01] VITALS: BP 122/80; BP 93/49; PULSE 95; TEMP 98
--- NOTE | 2022-08-27 15:30 | NUR ---
Financial Counseling has not been able to complete the Medicaid application yet with the patient, due to his cognition. MARIA TERESA staffed with ST for an update on his cognition. ST reports that the patient is showing some improvements. He is talking more and able to speak in some sentences. They plan to do a swallow study this afternoon for food intake. MARIA TERESA met with the patient and his brother, Rodriguez, to follow up and review the likely discharge plan of long-term care and to inquire some information for the Medicaid application. 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 He would then nguyen the checks. He does not have a bank account. He provides that he would keep the money in his wallet, but he is unsure where his wallet is at this time. Rodriguez reports that their sister lives around [place] and him in the [facility] area, so facilities around those areas would be preferrable. MARIA TERESA updated financial counseling for the Medicaid application. *Discharge plan: At this time, LTC. The Medicaid application will need to be completed for him to go Medicaid pending to a facility and for one to accept*
[2022-08-27 16:00] VITALS: BP 125/73; PULSE 98; TEMP 97.7
[2022-08-27 19:15] VITALS: BP 128/64; PULSE 110; TEMP 98.2
--- NOTE | 2022-08-27 19:31 | NUR ---
PT RESTING IN BED COMFORTABLY. TOLERATING TX WELL. NO DISTRESS NOTED. PT STATES "HURTING". ASKED PT IF HE WAS IN PAIN TO VERIFY CLAIMS. PT NODDED YES. SOREN PICKENS WHO IS CARING FOR PATIENT WAS NOTIFIED OF PT COMPLAINING OF PAIN. RN VERBALIZED UNDERSTANDING. NAME WRITTEN ON WHITEBOARD. CALL LIGHT WITHIN REACH. RAILS UP X4
[2022-08-27 23:14] VITALS: BP 115/77; PULSE 76; TEMP 98.8
--- NOTE | 2022-08-27 23:18 | NUR ---
RN NOTIFIED BY TELE THAT PATIENTS HEART RATE JUMPING UP INTO THE 130S-150S RATE IN A-FIB. RN NOTIFIED RONNELL LÓPEZ. RN AND Monica LÓPEZ AGREED CARDIOLOGY SHOULD BE CONTACTED. PER ONCALL LIST MD ARIAS IS RECORD PRODUCER. JUANA PAGED. NO NEW ORDERS
--- NOTE | 2022-08-27 23:21 | NUR ---
THIS RN NOTIFIED BY TELE THAT PATIENTS HEART RATE WHICH WAS PREVIOUSLY RATE CONTROLED IN THE 90S TO LOW 100S IN A-FIB WAS JUMPING UP INTO THE 130S- 150S. RN CONTACTED RONNELL LÓPEZ. Sindi LÓPEZ ASKED THIS RN TO REACH OUT TO CARDIOLOGY. THIS RN CONTACTED AUTOMATIC COIN MACHINE MECHANIC MD ARIAS. MD ARIAS CONTACTED THIS RN BACK AND TOLD THIS RN TO LET THE PATIENT SLEEP. NO NEW ORDERS THAT THIS TIME
[2022-08-28 03:04] VITALS: BP 105/75; PULSE 99; TEMP 98.6
[2022-08-28 06:18] LABS: BASO # 0.1 K/mm3 (0.0-0.2); EOS # 0.1 K/mm3 (0.0-0.7); EOS % 1.6 % (0.0-4.0); GRAN % 74.6 % (42.2-75.2); HEMOGLOBIN 12.3 g/dl (13.5-18.0); LYMPH # 1.3 K/mm3 (1.2-3.4); MEAN CELL VOLUME 86 fl (80.0-100.0); MEAN CORPUSCULAR HEMOGLOBIN 29 pg (27-31); MEAN CORPUSCULAR HGB CONC 33 g/dl (33.0-37.0); MEAN PLATELET VOLUME 9.8 fl (7.4-10.4); MONO # 0.5 K/mm3 (0.1-0.6); MONO % 6.2 % (1.7-9.3); PLATELET COUNT 182 K/mm3 (130-400); RED BLOOD COUNT 4.31 M/mm3 (4.20-5.60); REDCELL DISTRIBUTION WIDTH-CV 16.2 % (11.5-14.5)
[2022-08-28 06:22] LABS: HEMATOCRIT 36.9 % (42.0-52.0)
[2022-08-28 06:34] LABS: ALBUMIN 2.7 gm/dL (3.4-4.8); CALCIUM 8.7 mg/dL (8.4-10.2); CREATININE, serum 0.82 mg/dL (0.72-1.25); MAGNESIUM 1.9 mg/dL (1.6-2.6); POTASSIUM 3.9 mmol/L (3.5-4.5)
--- NOTE | 2022-08-28 06:58 | NUR ---
PT HEPARIN LEVEL 0.55 THIS MORNING- THIS IS THERAPEUTIC STILL, SO NO CHANGES NEEDED
[2022-08-28 08:00] VITALS: BP 117/86; PULSE 104; TEMP 97.5
--- NOTE | 2022-08-28 08:43 | NUR ---
CALLED TO ASK FOR SOMETHING FOR PT FOR C/O MIGRAINE HE ONLY HAS MORPHINE ORDER- DR. CASTRO SAID "NO, NO,NO, ABSOLUTELY NOT". WILL CONTINUE TO MONITOR PT MORPHINE IS NOT AN APPROPRIATE MEDICATION FOR A HEADACHE
[2022-08-28 11:22] VITALS: BP 113/82; PULSE 105; TEMP 97.5
[2022-08-28 16:04] VITALS: BP 117/67; PULSE 94; TEMP 97.8
--- NOTE | 2022-08-28 19:57 | NUR ---
PT SPEAKING BUT DIFF TO UNDERSTAND. PT HELD THIS PEDIATRIC SOCIAL WORKER'S HAND AND SAID "WANNA GO HOME". VEBALIZED UNDERSTANDING TO PT. HE IS LAYING ON HIS R SIDE IN BED. HOB SLIGHTLY ELEVATED. RAILS X4 UP AT THIS TIME. FEEDINGS AND IVS ON IV POLE ARE OFF AT THIS TIME. NO OTHER COMPLAINTS FROM PT. PT ALSO SAYS " DONT WANT DOOR SHUT." CONFIRMED WHAT PT WAS SAYING. PT IS ABLE TO ROLL OVER SLIGHTLY AND LOOK UP TO TV AND IS WATCHING [employer] GAME. CALL LIGHT WITHIN REACH.
[2022-08-28 20:18] VITALS: BP 124/61; PULSE 57; TEMP 98.7
--- NOTE | 2022-08-28 23:06 | NUR ---
PATIENT ASSESSED AND GIVEN NIGHTLY MEDICATIONS. HE IS AOX2-3 AND PLEASANT, BUT DIFFICULT TO UNDERSTAND. IT IS HARD FOR HIM TO PRONOUNCE WORDS AND FORM SENTENCES. NPO WITH GRAVITY BOLUS FEEDINGS AND HOB ABOVE 30 DEGREES. ACCU CHECKS Q6H. PICC WITH BLOOD RETURN AND FLUSHES EASILY. GETTING MANNITOL DOSES, HAS GOTTEN 4X DOSES THUS FAR. BETHANY W/ C/V PLANNED FOR 08/29. DOBHOFF IN PLACE IN LEFT NARE. SUPRAPUBIC CATHETER WITH ADEQUATE OUTPUT. RECTAL TUBE WITH MINIMAL LIQUID BROWN OUTPUT. CALL LIGHT IN REACH. BED IN LOWEST POSITION. ON CONTINUOUS VITAL SIGNS PER THIS NURSES DESCRETION TO MONITOR BLOOD PRESSURE AND PULSE.
--- NOTE | 2022-08-28 23:36 | NUR ---
THE PATIENT NOTIFIED THIS NURSE THAT HE NEEDS ASSISTANCE WITH HIS BILLS AND STATED THAT THERE IS A "[employer]ER[employer] PROGRAM". HE SAYS THE PROGRAM HELPS OUT WITH BILLS. THIS NURSE WILL PASS IT ON TO THE DAY SHIFT NURSE.
[2022-08-29 03:28] VITALS: BP 114/68; PULSE 83; TEMP 97.3
[2022-08-29 06:20] LABS: HEMATOCRIT 38.1 % (42.0-52.0); HEMOGLOBIN 12.7 g/dl (13.5-18.0); MEAN CELL VOLUME 85 fl (80.0-100.0); MEAN CORPUSCULAR HEMOGLOBIN 29 pg (27-31); MEAN CORPUSCULAR HGB CONC 33 g/dl (33.0-37.0); MEAN PLATELET VOLUME 9.8 fl (7.4-10.4); PLATELET COUNT 221 K/mm3 (130-400); RED BLOOD COUNT 4.46 M/mm3 (4.20-5.60); REDCELL DISTRIBUTION WIDTH-CV 16.3 % (11.5-14.5)
[2022-08-29 06:42] LABS: ALBUMIN 3.1 gm/dL (3.4-4.8); CREATININE, serum 0.92 mg/dL (0.72-1.25); MAGNESIUM 2.1 mg/dL (1.6-2.6); POTASSIUM 4.6 mmol/L (3.5-4.5); TOTAL PROTEIN 6.6 gm/dL (6.2-8.1)
[2022-08-29 07:14] LABS: ANISOCYTOSIS 1+; BAND 2 % (0-10); LYMPHOCYTE 3 % (20.0-51.0); NEUTROPHILS 95 % (42.0-75.2); PLATELET ESTIMATE NORMAL (NORMAL)
[2022-08-29 07:44] VITALS: BP 109/73; PULSE 66; TEMP 97.9
--- NOTE | 2022-08-29 08:09 | NUR ---
PT WAS FOUND ON FLOOR IN ROOM NEXT TO FOOT OF BED AT 0735. BED ALARM WAS ON BUT DID NOT ALARM- PT WAS IN A SPECIALTY BED. WE WILL PLACE HIM IN A REGULAR BED INSTEAD THE SPECIALTY ONE IS NOT WORKING PROPERLY. NO INJURIES WERE FOUND. KIKI RAPHAEL WAS NOTIFIED SHE WAS ALREADY ON THE FLOOR. PT WILL GO DOWN FOR HEAD CT. FAMILY NOTIFIED.
--- NOTE | 2022-08-29 10:26 | NUR ---
PT HAS HAD GENERAL DECLINE IN ORIENATION AND NEUROLOGICAL STANDPOINT SINCE YESTERDAY. ON 08/28 PT SPEECH WAS GETTING CLEARER AND STRENGTH WAS GETTING BETTER. TODAY HIS SPEECH IS MORE GARBLED AND MUMBLED (APHASIC) AND CONVERSATION DOESN'T ALWAYS MAKE SENSE. HE REQUIRES A LOT OF REDIRECTION FOR ASSESSMENTS AND TO DETER HIM FROM PICKING/PULLING AT HIS LINES. HE IS ORIENTED X2-3, BUT CONFUSED PERIODICALLY. HE HAS ATTEMPTED TO GET OUT OF BED A FEW TIMES WELL- HE HAS A KAL ALARM UNDER HIM, WILL GET A NEW BED; ON HIGH FALL RISK PROTOCOL, AND HAS A MED SITTER. PT HAS BEEN BEHAVIORAL AT TIMES TOO AND WILL NOT FOLLOW DIRECTIONS.
[2022-08-29 11:41] VITALS: BP 128/96; PULSE 99; TEMP 97.8
--- NOTE | 2022-08-29 14:51 | NUR ---
The hospitalist notified SW that the patient has an intracranial bleed. The patient's legal next of kin is his brother, Rodriguez, and sister, Nicole. MARIA TERESA informed the hospitalist of this. The hospitalist contacted the patient's brother, Rodriguez, to update and address how aggressive they want to be. Rodriguez would like to talk to his sister first and then get back to the hospitalist on their decision.
[2022-08-29 15:12] VITALS: BP 102/62; PULSE 68; TEMP 97.7
[2022-08-29] MEDS ORDERED: UROCIT-K15 MEQ PO (15:34)
--- NOTE | 2022-08-29 19:13 | NUR ---
NURSE WENT IN TO DO 1800 TUBE FEEDING AND FOUND PT TO HAVE PULLED HIS RECTAL TUBE OUT ON HIS OWN. PT CLEANED UP WITH HELP OF NA STAFF. RECTAL TUBE WAS NOT REPLACED PER NURSING JUDGEMENT PT HAD HAD MINIMAL TO NO OUTPUT THROUGH THE RECTAL TUBE THROUGHOUT THE SHIFT.
[2022-08-29 19:44] VITALS: BP 112/73; PULSE 72; TEMP 97.9
[2022-08-29 23:21] VITALS: BP 125/65; PULSE 74; TEMP 98.3
[2022-08-30 03:49] VITALS: BP 131/94; PULSE 79; TEMP 98.4
[2022-08-30 05:21] LABS: HEMATOCRIT 38.4 % (42.0-52.0); HEMOGLOBIN 12.1 g/dl (13.5-18.0); MEAN CORPUSCULAR HEMOGLOBIN 28 pg (27-31); MEAN CORPUSCULAR HGB CONC 32 g/dl (33.0-37.0); MEAN PLATELET VOLUME 10.1 fl (7.4-10.4); PLATELET COUNT 251 K/mm3 (130-400); RED BLOOD COUNT 4.26 M/mm3 (4.20-5.60); REDCELL DISTRIBUTION WIDTH-CV 17.2 % (11.5-14.5)
[2022-08-30 05:24] LABS: CREATININE, serum 1.3 mg/dL (0.72-1.25); MAGNESIUM 2.5 mg/dL (1.6-2.6); POTASSIUM 4.2 mmol/L (3.5-4.5)
[2022-08-30 05:30] LABS: MEAN CELL VOLUME 90 fl (80.0-100.0)
[2022-08-30 05:52] LABS: BAND 2 % (0-10); LYMPHOCYTE 4 % (20.0-51.0); NEUTROPHILS 93 % (42.0-75.2)
[2022-08-30 05:53] LABS: ANISOCYTOSIS 1+; HYPOCHROMIA 2+; PLATELET ESTIMATE NORMAL (NORMAL)
[2022-08-30 07:23] VITALS: BP 112/60; PULSE 83; TEMP 97.2
--- NOTE | 2022-08-30 07:41 | NUR ---
Pt did not receive a 1800 feeding before shift change. He received the following feeding at 2100 and 0000. He tolerated well. He had weakness and some unequal side framer along with left sided facial drooping. 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 He was normal sinus all night. He went into Afib around 0500 and was tachycardic between 95-133 while at rest. I spoke with SHIELA Roblero and she gave an order for a one time dose of Metoprolol 5 mg IV. Administered med as ordered. He continues to have aphasia and is difficult to understand. He is on fall precautions and bed alarm is on.
--- NOTE | 2022-08-30 08:00 | NUR ---
Agree with nurse LEONELA Sellers assessment of the patient. NG tube intact. Telesitter in the room. Call light within reach. Bed alarm on
--- NOTE | 2022-08-30 08:20 | NUR ---
Pt appears to be awake upon entering. Pt has liquid on chest and gown and had bottle of jevity in bed. Unable to determine if there was a spill or if the pt vomited. Gown changed and pt cleaned. Assessment done, see interventions. Pt shakes head to deny any complaints of pain. Bed in lowest position, call light within reach.
[2022-08-30 09:44] VITALS: BP 127/71; PULSE 105
--- NOTE | 2022-08-30 09:54 | NUR ---
Peg tube feeding intiated with 30ml flush and 60 ml jevity given, pt began to scratch at chest and breathing more deeply than before. When asked if pt was experiencing chest pain pt nodded head yes. Feeding stopped and VS taken, heart rate up to 120 bpm. SOREN Alba notified.
--- NOTE | 2022-08-30 11:33 | NUR ---
Dobhoff removed, tip intact. Pt tolerated well
--- NOTE | 2022-08-30 12:13 | NUR ---
Anjali DOTY and Dr. Damon inform this Senior Java Developer that patient and family have decided on comfort care measures. Patient will require hospice services at discharge; he will likely remain hospitalized through the weekend as patient is self-pay and requires case management follow up to establish. *Case Management follow up to patient and his brother to establish hospice care services for discharge*
--- NOTE | 2022-08-30 16:29 | NUR ---
Pt in bed with family at bedside. When asked if there was any pain pt nodded head yes and when asked if he would like PRN oral roxanol per order pt nodded head yes. Pt has no other complaints at this time, call light within reach.
--- NOTE | 2022-08-30 17:16 | NUR ---
Suprapubic catheter site cleaned. No redness, drainage, or pain reported. Dressing changed and pt tolerated well.
--- NOTE | 2022-08-31 01:52 | NUR ---
Bryant is on comfort care. He has been sleeping on and off throughout the night. He is still alert and responds with appropriate body language to communicate. He is having small blood clots in his urine at this time. His bed remains in the lowest position with the bed alarm on.
--- NOTE | 2022-08-31 12:15 | NUR ---
Turbo Generator Oiler rounds: Turbo Generator Oiler visit attempted. Patient was sleeping.
--- NOTE | 2022-08-31 14:23 | NUR ---
TERESA charting reviewed, agree wit documentation. Tray Eldridge RN
--- NOTE | 2022-08-31 20:00 | NUR ---
Patient laying in bed watching TV, family at the bedside. A&O. IV CDI. Denies pain and discomfort. Air mattress in place. Telesitter in the room. Comfort care orders in place. Call light within reach. Bed alarm on
--- NOTE | 2022-08-31 23:00 | NUR ---
care taken over by this nurse. pt sitting up in bed sipping on coke. no needs at this time
--- NOTE | 2022-09-01 07:45 | NUR ---
Pt awake and laying in bed. Telesitter in room. Pt is able to respond to questions by nodding. PICC in [place] remains intact, no edema or redness. Suprapubic catheter remains in place, CDI. Pt repostioned in bed. Remains NPO. Call light within reach. Fall precautions in place.
--- NOTE | 2022-09-01 14:21 | NUR ---
TERESA charting reviewed, agree with documentation. SOREN Delatorre Clinical Instructor.
--- NOTE | 2022-09-01 15:20 | NUR ---
The patient is self pay. Financial Counseling has not been able to complete a Medicaid application yet. MARIA TERESA met with the patient to discuss the option of going to the hospice house. The patient nodded yes to going to the hospice house. MARIA TERESA then presented the DPOA-HC and reviewed it with the patient. The patient was able to verbalize understanding of what a DPOA-HC and that he trusts his brother, Rodriguez, to make medical decisions for him. The patient nodded yes that he would like to complete a DPOA-HC and verbalized he wanted to designate his brother, Rodriguez. MARIA TERESA and MARIA TERESA Arroyo, witnessed the patient's signature. MARIA TERESA provided the patient with the original and some copies. MARIA TERESA placed a copy in the patient's chart. MARIA TERESA attempted to contact Wili at [facility]. MARIA TERESA left her a voicemail and emailed her the referral. MARIA TERESA attempted to contact and update the patient's brother, Rodriguez, about the DPOA-HC. MARIA TERESA left him a voicemail. MARIA TERESA received a phone call from the patient's sister, Nicole. She provided her with an agreement. She is supportive of the plan. MARIA TERESA attempted to contact Raegan Mariscal to find out if they are able to go into the patient's apartment to look for his wallet. MARIA TERESA left them a voicemail.
[2022-09-01 20:41] VITALS: BP 133/83; PULSE 51; TEMP 97
--- NOTE | 2022-09-02 04:50 | NUR ---
ASSESSMENT COMPLETE FOR AIRLINE HOSTESS. PT ONLY COMMUNICATES WITH HEAD NODS. PT DENIED DISCOMFORT. PT TURNED EVERY 2HRS. PT CHECKED ON OFTEN TO ENSURE NEEDS WERE MET. FALL PRECAUTIONS IN PLACE. BED ALARM ON. CALL LIGHT WITHIN REACH.
--- NOTE | 2022-09-02 07:30 | NUR ---
Pt asleep upon entering room. Shift assessment completed. Pt nods in response to questions. PICC in R upper arm remains intact with alison wrap in place. Suprapubic catheter remains in place, CDI. Call light within reach. Bed alarm on. Telesitter in room.
--- NOTE | 2022-09-02 11:17 | NUR ---
Scopolamine patch placed behind R ear.
--- NOTE | 2022-09-02 15:33 | NUR ---
MARIA TERESA contacted Wili at [facility] to follow up on the referral. Wili states that they would prefer if the patient's Medicaid application be completed prior to discharge, so that way he will be entering the hospice house Medicaid pending. MARIA TERESA notified Financial Counseling. Fannie, with financial counseling, reports that she was able to get the Medicaid application completed. The patient's brother just needs to sign the application and they would also need a General DPOA completed. MARIA TERESA met with the patient and updated him on the above. The patient is interested in completing the General DPOA and verbalized he wants to designate his brother, Rodriguez. MARIA TERESA and Yosi, social work program coordinator, witnessed the patient's signature. MARIA TERESA emailed the completed document to financial counseling and placed the document in the patient's chart. Fannie states that the patient's brother plans to be here tomorrow afternoon to sign the Medicaid application, for them to submit it. MARIA TERESA updated Wili at [facility]. Wili states that they should be good to accept the patient tomorrow. The patient's brother will need to sign paperwork on their end and they are awaiting Dr. Land's approval to follow while there. MARIA TERESA contacted and updated the patient's brother, Rodriguez. Rodriguez plans to arrive at the hospital around 1400 tomorrow to sign the Medicaid application. *Discharge plan: Hospice House*
--- NOTE | 2022-09-03 10:32 | NUR ---
Shift assessment is done this morning. Patient denies any pain or discomfort. Ate pudding and milk this morning. Bed is in lowest position. Fall precatuion is on place. Will continue to monitor.
[2022-09-03] MEDS ORDERED: ROXANOL 20MG20 MG/ML SL (11:24)
[2022-09-03] MEDS ORDERED: KEPPRA SUSP100 MG/ML PO (11:26)
[2022-09-03] MEDS ORDERED: TRANSDERM-0.5 MG/21 TD (11:27)
[2022-09-03] MEDS ORDERED: ZOFRAN ODT8 MG PO (11:27)
--- NOTE | 2022-09-03 13:40 | NUR ---
Patient is discharged to [facility]. PICC line is discontinued. Patient denies any pain or discomfort at the time of discharge. This nurse gave the nursing report about the patient to the nurse at [facility]. Patient is transported via EMS.
--- NOTE | 2022-09-03 13:52 | NUR ---
Wili, at [facility], reports that Dr. Land accepted the patient and they are able to accept the patient today. Financial Counseling notified MARIA TERESA that the patient's brother, Rodriguez, also has to sign the General DPOA. MARIA TERESA contacted the patient's brother, Rodriguez, to update. Rodriguez states that he should arrive at the hospital around 1230-45 today. MARIA TERESA informed him where Financial Counseling is located. MARIA TERESA updated Mounas with Financial Counseling. MARIA TERESA met with the patient to update. The patient nodded yes in agreement to the plan. MARIA TERESA presented the patient with the EMS Consent Form. The patient nodded yes in agreement and signed the form. MARIA TERESA collaborated with Personal Injury Law Specialist and the patient's EMS transfer will be billed to the hospital. The patient's brother, Rodriguez, then arrived to the patient's room. MARIA TERESA presented him with the General DPOA form. Rodriguez verbalized understanding and signed the form. MARIA TERESA provided him with the original and placed a copy in the patient's chart. The patient is to discharge today, 09/03, to the [facility]. Transportation scheduled at 1330, via [facility]. MARIA TERESA informed the patient, his brother, the RN, and Wili at [facility] of the time. No additional needs at this time.
== END 2022-09-03 13:40 | disposition hospice, home (50) | DRG 870 ==
LOC: COL.ER 13:29 → ICU 17:13 → EDBD 17:13 → MEDICAL 17:13 → ICU 17:14 → MEDICAL 08-25 12:06
PROVIDERS: Family Medicine; Internal Medicine Interventional Cardiology; Internal Medicine Sleep Medicine; Nurse Practitioner; Nurse Practitioner Family; Physician Assistant; Student in an Organized Health Care Education/Training Program; ADMIT Internal Medicine
PROC: 5A1955Z Respiratory Ventilation, Greater than 96 Consecutive Hours (ICD-10-PCS; principal; 2022-08-16)
PROC: 0BH17EZ Insertion of Endotracheal Airway into Trachea, Via Natural or Artificial Opening (ICD-10-PCS; 2022-08-16)
PROC: 06HM33Z Insertion of Infusion Device into Right Femoral Vein, Percutaneous Approach (ICD-10-PCS; 2022-08-16)
PROC: 0W9B3ZX Drainage of Left Pleural Cavity, Percutaneous Approach, Diagnostic (ICD-10-PCS; 2022-08-16)
PROC: 0T9B80Z Drainage of Bladder with Drainage Device, Via Natural or Artificial Opening Endoscopic (ICD-10-PCS; 2022-08-17)
PROC: 02HV33Z Insertion of Infusion Device into Superior Vena Cava, Percutaneous Approach (ICD-10-PCS; 2022-08-18)
DX: A41.9 Sepsis, unspecified organism (principal); I26.99 Other pulmonary embolism without acute cor pulmonale; I63.511 Cerebral infarction due to unspecified occlusion or stenosis of right middle cerebral artery; I50.23 Acute on chronic systolic (congestive) heart failure; J18.9 Pneumonia, unspecified organism; J96.01 Acute respiratory failure with hypoxia; I46.9 Cardiac arrest, cause unspecified; R57.0 Cardiogenic shock; Z66 Do not resuscitate; Z51.5 Encounter for palliative care; I61.9 Nontraumatic intracerebral hemorrhage, unspecified; G81.94 Hemiplegia, unspecified affecting left nondominant side; E87.20 Acidosis, unspecified; G93.40 Encephalopathy, unspecified; N17.9 Acute kidney failure, unspecified; I47.1 Supraventricular tachycardia; E87.1 Hypo-osmolality and hyponatremia; J90 Pleural effusion, not elsewhere classified; I48.91 Unspecified atrial fibrillation; I87.8 Other specified disorders of veins; I51.3 Intracardiac thrombosis, not elsewhere classified; R31.9 Hematuria, unspecified; E87.5 Hyperkalemia; Z20.818 Contact with and (suspected) exposure to other bacterial communicable diseases; F43.20 Adjustment disorder, unspecified; R73.9 Hyperglycemia, unspecified
CPT/HCPCS: A4314; C1751; C1769; C8923; C9113; J0282; J0330; J1160; J1644; J1815; J1940; J1953; J2060; J2270; J2543; J2704; J2930; J3010; J3370; J3430; J3480; J7030; J7050; J7060; J7120; Q9967